=== PATIENT | female | born 1950 | race Caucasian/White ===

== ENCOUNTER → 2018-02-08 | Outpatient (CLI) | payer OTHER ==
[~2018-02-08] MED LIST: ACETAMINOPHEN 500 MG TAB PO ONE; DEXTROSE 5%(*) 100 ML BAG 100 ML IVPB PRN; ESOM20CA31 PO; ESOM40CA42 PO; EZET1TAB81 PO; LEVO50TA86 PO; LIDOCAINE/SOD BICARB 8.4% SYR ID PRN; LOSA-57 PO; NS(*) 0.9% 100 ML BAG 100 ML IVPB PRN; ONDANSETRON 4 MG/2 ML VIAL IVP ONE; PROMETHAZINE 25 MG/ML 1 ML AMP IVP PRN
[2018-02-08 12:03] VITALS: BP 128/81
[2018-02-08] MEDS: NS(*) 0.9% 1000 ML BAG 1,000 ML IV PRN ×2 (12:29→13:48)
[2018-02-08 15:51] VITALS: BP 103/68
== END ==
LOC: SPU 11:24
PROVIDERS: ATTEND Nurse Practitioner Family
DX: R11.10 Vomiting, unspecified (principal)
CPT/HCPCS: 96361; 96365; 96375; J2405; J2550; J7030

== ENCOUNTER → 2018-08-14 | Outpatient (CLI) | payer OTHER ==
[~2018-08-14] MED LIST changes: -ACETAMINOPHEN 500 MG TAB PO ONE; -DEXTROSE 5%(*) 100 ML BAG 100 ML IVPB PRN; -LIDOCAINE/SOD BICARB 8.4% SYR ID PRN; -NS(*) 0.9% 100 ML BAG 100 ML IVPB PRN; -ONDANSETRON 4 MG/2 ML VIAL IVP ONE; -PROMETHAZINE 25 MG/ML 1 ML AMP IVP PRN
--- NOTE | 2018-08-14 14:58 | RADIOLOGY IMAGING REPORT ---
[place] [facility] [place] NAME: DALY JAMIL : [id number] MR: [id number] V: [id number] EXAM DATE: [id number] ORDERING PHYSICIAN: TOMMY AL TECHNOLOGIST: Adriana Teresa PROCEDURE:BILATERAL DIGITAL SCREENING MAMMOGRAM WITH CAD ASSISTED INTERPRETATION & 3D TOMOSYNTHESIS COMPARISON:Prior mammograms 07/28/17, 07/27/16, 07/30/15, 08/09/13, 08/07/12. INDICATIONS:screening FINDINGS: A small to moderate amount of fibroglandular tissue is seen throughout the breasts. The parenchymal pattern has remained stable allowing for difference in mammographic technique & patient positioning. There is no evidence of malignant appearing mass, malignant appearing calcifications or other secondary sign of malignancy in either breast. DIAGNOSTIC CATEGORY 1--NEGATIVE. RECOMMENDATIONS: ROUTINE MAMMOGRAM AND CLINICAL EVALUATION. IMPRESSION: BIRADS 1: Negative. No significant abnormality is seen. Dictated by: Avis Bateman M.D. on 08/14/2018 at 14:35 Transcribed by: ALF on 08/14/2018 at 14:43 Approved by: Avis Bateman M.D. on 08/14/2018 at 14:57 [facility]
== END ==
LOC: MAMO 00:26
PROVIDERS: ATTEND Nurse Practitioner Family
DX: Z12.31 Encounter for screening mammogram for malignant neoplasm of breast (principal)
CPT/HCPCS: 77063; 77067

== ENCOUNTER → 2018-10-03 | Outpatient (CLI) | payer OTHER ==
--- NOTE | 2018-10-04 13:37 | RADIOLOGY IMAGING REPORT ---
FACILITY: [facility] - [place], [place] PATIENT NAME: Rosalba Linares : 1950 MR: [id number] V: [id number] EXAM DATE: ORDERING PHYSICIAN: TOMMY AL TECHNOLOGIST: Location: [facility] Patient: Rosalba Linares : 1950 Visit/Account:[id number] Date of Sevice: 10/03/2018 Clinical history: Screening, postmenopausal. Comparison: Patient had a prior study 05/10/2006 and data is incomplete and cannot be currently access ed. Comparison was made with the left hip but not the lumbar spine. LUMBAR SPINE: The bone mineral density (BMD) measured from L1-L4 correlates with a Z-score of 2.1 and a T-score of 0.4 which is normal as defined by the World Health Organization. The corresponding risk of fracture in the lumbar spine is not increased compared with a young adult reference population. HIP: Bone mineral density (BMD) measured in the left total hip region correlates with a Z-score of 2.3 and a T-score of 0.8 which is normal as defined by the World Health Organization. The corresponding ris k of fracture in the hip is not increased compared with a young adult reference population. Bone min eral density has decreased by 0.2% compared to previous, this is not considered significant. Bone mineral density (BMD) measured in the left femoral neck correlates with a Z-score of 1.9 and a T -score of 0.3 which is normal as defined by the World Health Organization. The corresponding risk of fracture in the hip is not increased compared with a young adult reference population. Bone mineral density (BMD) measured in the left Femoral Neck region measures 1.073 g/cm2. Impression: 1. Lumbar spine: Normal. 2. Left total hip: Normal. 3. Left femoral neck: Normal 4. Left femoral neck Bone Mineral Density is 1.073 g/cm2 The next DEXA scan of this patient should include the following sites: Lumbar spine and left hip. FRAX? WHO Fracture Risk Assessment Tool link: http://www.shef.ac.uk/FRAX/tool.jsp?locationValue=9 PLEASE NOTE: 1) The World Health Organization defines low BMD as follows: T-score Normal > -1 Osteopenia < -1 and > -2.5 Osteoporosis < -2.5 without fractures Established osteoporosis < -2.5 with fractures 2) In general, you may wish to consider: Diagnosis Treatment Follow-up DEXA Normal BMD Prevention 2-3 years Osteopenia Prevention/therapy 1-2 years Osteoporosis Therapy Yearly 3) Fracture risk estimated from the T-score is more accurate for vertebral fractures (often spontane ous) than for hip fractures. Report Dictated By: Gege Sorensen MD at 10/04/2018 8:09 AM Report E-Signed By: Gege Sorensen MD at 10/04/2018 1:33 PM WSN:[id number]
== END ==
LOC: RAD 15:40
PROVIDERS: ATTEND Nurse Practitioner Family
DX: E28.39 Other primary ovarian failure (principal)
CPT/HCPCS: 77080

== ENCOUNTER → 2018-11-21 | Outpatient (CLI) | payer OTHER ==
--- NOTE | 2018-11-21 11:08 | RADIOLOGY IMAGING REPORT ---
FACILITY: [facility] - [place] PATIENT NAME: Rosalba Linares : 1950 MR: [id number] V: [id number] EXAM DATE: ORDERING PHYSICIAN: ADAMA EAST TECHNOLOGIST: Location: [facility] - [place], [place] Patient: Rosalba Linares : 1950 Visit/Account:[id number] Date of Sevice: 11/21/2018 CHEST PA LAT History: Drainage and cough x1 year FINDINGS: Comparison studies: January 29, 2015 Tubes and Lines: None. Lungs and pleura: Well aerated. No evidence of focal consolidation or pleural effusions. Mediastinum: normal. Cardiac silhouette: normal . Osseous structures: Unremarkable for age . IMPRESSION: Normal chest Report Dictated By: Bj Patterson MD at 11/21/2018 11:03 AM Report E-Signed By: Bj Patterson MD at 11/21/2018 11:04 AM WSN:[id number]
== END ==
LOC: RAD 10:08
PROVIDERS: ATTEND Nurse Practitioner Family
DX: R05 Cough (principal)
CPT/HCPCS: 71046

== ENCOUNTER → 2018-12-13 | Outpatient (CLI) | payer OTHER | LOC: LAB 10:23 | PROVIDERS: ATTEND Obstetrics & Gynecology | DX: Z01.818 Encounter for other preprocedural examination (principal) | CPT/HCPCS: 36415; 82310; 82374; 82435; 82565; 82947; 84132; 84295; 84520 ==

== ENCOUNTER → 2018-12-26 | Outpatient (CLI) | payer OTHER ==
[~2018-12-26] MED LIST changes: +IOPAMIDOL 76% 100 ML INFUS BTL 100 ML ONE
--- NOTE | 2018-12-26 09:01 | RADIOLOGY IMAGING REPORT ---
FACILITY: [facility] - [place] PATIENT NAME: Rosalba Linares : 1950 MR: [id number] V: [id number] EXAM DATE: ORDERING PHYSICIAN: GALE PURDY TECHNOLOGIST: Location: [facility] Patient: Rosalba Linares : 1950 Visit/Account:[id number] Date of Sevice: 12/26/2018 ADDENDUM #1 ADDENDUM: Received a telephone call from Dr. Purdy on the afternoon of December 26, 2018. Clinically there is question of urethral diverticulum. In my colleague's absence, I reviewed the images of the lower p janiya/vagina and there is no evidence of urethral diverticulum by CT. Note is made that MRI is signif icantly more sensitive for detection and characterization of urethral diverticula and other urethral abnormalities. Therefore if there is question of a diverticulum I would recommend pre-/postcontrast p janiya MRI (female pelvis urethra protocol) for further characterization. Report Dictated By: Edilson James at 12/26/2018 2:37 PM Report E-Signed By: Edilson James at 12/26/2018 2:[address] ABDOMEN PELVIS W & W/O CONTRAST HISTORY: Recurrent UTI TECHNIQUE: Axial images acquired through the abdomen/pelvis both with and without IV contrast.. Adolfo nal and sagittal reformatting also performed. One of the following dose optimization techniques was utilized in the performance of this exam: Automated exposure control; adjustment of the mA and/or kV according to the patient's size; or use of an iterative reconstruction technique. Specific details can be referenced in the facility's radiology CT exam operational policy. CONTRAST: 75 mL Isovue-370 COMPARISON: Comparison CT scan 10/13/2017 FINDINGS: Visualized lung bases: Negative. Hepatobiliary: The liver. Remote cholecystectomy unchanged. Spleen: Negative. Adrenals: Negative. Pancreas: Negative. Kidneys ureters and bladder: Kidneys, ureters, and urinary bladder unremarkable. No evidence of ston es or other pathology. Genitalia: Negative. GI: The appendix is not seen and presumptively patient's had a previous appendectomy. GI tract unre markable appearance. Vessels/spaces/nodes: Negative. Bones/soft tissues: There is L5-S1 spondylolysis with mild grade 1 spondylolisthesis unchanged. The re is [id number] abutment at L5-S1 discs with reactive endplate sclerotic changes also unchanged. Additional findings: There is a small right inguinal hernia containing peritoneal fat (sagittal imag e 57 series 9) unchanged. IMPRESSION: No acute pathology identified. No evidence of ureteral nephrolithiasis. Etiology of patient's UTIs is not identified. L5-S1 spondylolysis with grade 1 spondylolisthesis and advanced degenerative disc disease. Small fat filled right inguinal hernia unchanged. Report Dictated By: Bj Patterson MD at 12/26/2018 8:50 AM Report E-Signed By: Bj Patterson MD at 12/26/2018 8:57 AM WSN:[id number]
== END ==
LOC: CT 01:02
PROVIDERS: ATTEND Obstetrics & Gynecology
DX: M43.06 Spondylolysis, lumbar region (principal)
CPT/HCPCS: 74178; Q9967

== ENCOUNTER → 2019-01-01 | Outpatient (CLI) | payer OTHER ==
[~2019-01-01] MED LIST changes: -IOPAMIDOL 76% 100 ML INFUS BTL 100 ML ONE
== END ==
LOC: LAB 09:26
PROVIDERS: ATTEND Urology
DX: R31.9 Hematuria, unspecified (principal)
CPT/HCPCS: 81001